=== PATIENT | male | born 1965 ===

== ENCOUNTER 2017-03-15 16:05 | Emergency (ER) | payer SELFPAY ==
[2017-03-15 16:27] VITALS: BP 124/85; PULSE 91; RESP 19; TEMP 98.9; O2SAT 97; BMI 29.5
--- NOTE | 2017-03-15 16:29 | ED PDOC ---
HPI: Dental Pain/Injury Time Seen by Provider: 03/15/17 16:16 Chief Complaint (Nursing): Dental Pain Chief Complaint (Provider): Dental Pain History Per: Patient History/Exam Limitations: no limitations Onset/Duration Of Symptoms: Days (2) Current Symptoms Are (Timing): Still Present Severity: Moderate Quality: "Pain" Additional Complaint(s): Dawood Marrero is a 52 y/o male presenting to the ER on 03/15/2017 with complaints of dental pain x 2 days. Patient reports breaking tooth after eating lunch yesterday. He has been taking Motrin and Naproxen for his pain with has not helped. Patient is tolerating liquids and solids. He rates current pain as 8 /10. Past Medical History Reviewed: Historical Data, Nursing Documentation, Vital Signs Vital Signs: Last Vital Signs Temp 98.9 F 03/15/17 16:23 Pulse 91 H 03/15/17 16:23 Resp 19 03/15/17 16:23 BP 124/85 03/15/17 16:23 Pulse Ox 97 03/15/17 16:23 - Medical History PMH: No Chronic Diseases - Surgical History Surgical History: No Surg Hx - Family History Family History: States: No Known Family Hx - Living Arrangements Living Arrangements: With Family - Social History Current smoker - smoking cessation education provided: No Alcohol: None Drugs: Denies - Home Medications Home Medications: Ambulatory Orders Medication Instructions Recorded traMADol [Ultram] 50 mg PO TID PRN #15 tab 03/15/17 - Allergies Allergies/Adverse Reactions: Allergies Allergy/AdvReac Type Severity Reaction Status Date / Time No Known Allergies Allergy Verified 03/15/17 16:26 Review of Systems ROS Statement: Except As Marked, All Systems Reviewed And Found Negative Constitutional: Negative for: Fever ENT: Positive for: Other ((+) dental pain ) Gastrointestinal: Negative for: Nausea, Vomiting Neurological: Negative for: Headache, Dizziness Physical Exam - Reviewed Nursing Documentation Reviewed: Yes Vital Signs Reviewed: Yes - Physical Exam Appears: Positive for: Non-toxic, No Acute Distress Head Exam: Positive for: ATRAUMATIC, NORMOCEPHALIC Skin: Positive for: Normal Color, Warm, Dry ENT: Positive for: Other (multiple missing molar teeth to the right lower mandible w/ no evidence of any acute injuries or infection, airway patent, uvula midline) Cardiovascular/Chest: Positive for: Regular Rate, Rhythm Respiratory: Positive for: Normal Breath Sounds Neurologic/Psych: Positive for: Alert, Oriented. Negative for: Motor/Sensory Deficits - ECG O2 Sat by Pulse Oximetry: 97 Pulse Ox Interpretation: Normal Medical Decision Making Medical Decision Makin:16 Initial Impression- Dental Pain Initial Plan- * Ultram 50 mg PO Patient reports improvement to pain s/p tramadol dose. Rx ultram given. Patient states he has private dentist and he was advised to follow up with dentist MACK. Documented by Brigitte Rose, acting as a scribe for Elana Rodriguez PA-C All medical record entries made by the Scribe were at my direction and personally dictated by me. I have reviewed the chart and agree that the record accurately reflects my personal performance of the history, physical exam, medical decision making, and the department course for this patient. I have also personally directed, reviewed, and agree with the discharge instructions and disposition. Disposition - Clinical Impression Clinical Impression: Tooth pain - Patient ED Disposition Is Patient to be Admitted: No Counseled Patient/Family Regarding: Diagnosis, Need For Followup, Rx Given - Disposition Referrals: [facility] [Outside] Disposition: Routine/Home Disposition Time: 16:52 Condition: STABLE Additional Instructions: TAKE RX MEDS DIRECTED NEEDED FOR PAIN. FOLLOW UP MACK WITH DENTIST Prescriptions: traMADol [Ultram] 50 mg PO TID PRN #15 tab PRN Reason: Pain, Moderate (4-7) Instructions: Toothache (ED)
== END 2017-03-15 17:00 | disposition home or self-care (01) ==
LOC: H.ER 16:05
DX: K08.89 Other specified disorders of teeth and supporting structures (principal)